=== PATIENT | female | born 1985 | race Two or more races ===

== ENCOUNTER 2022-07-02 11:08 | Emergency (ER) | payer OTHER ==
[2022-07-02 11:30] VITALS: BP 126/58
--- NOTE | 2022-07-02 11:47 | XRAY Report ---
PROCEDURE: Shoulder 3 View RT INDICATIONS: pain TECHNIQUE: 3 views of the shoulder were acquired. COMPARISON: None. FINDINGS: Bones: No fractures or dislocations. No suspicious bony lesions. Visualized ribs appear intact. Soft tissues: No suspicious soft tissue calcifications. IMPRESSION: No acute shoulder fracture or dislocation. No gross soft tissue abnormalities. Reviewed by: Hermilo Jeong MD on 07/02/2022 11:45 AM [facility] Approved by: Hermilo Jeong MD on 07/02/2022 11:45 AM [facility] Station ID: [id number]
--- NOTE | 2022-07-02 13:52 | ED Physician Documentation ---
PD HPI UPPER EXT INJURY - Stated complaint Stated Complaint: R SHOULD INJ - Chief complaint Chief Complaint: Trauma Ext - History obtained from History obtained from: Patient - History of Present Illness Location: Right, Shoulder Type of injury: Other (repetitive use and lifting.) Where injury occurred: Work Timing - onset: Yesterday (she states was doing lifting of heavy boxes, up and onto overhead shelving. No impact injury nor fall. Did not havepain at the time. Overnight had onset pain right posterior shoulder. Hurts with ROM.) Timing - duration: Hours Timing - details: Gradual onset, Still present Improved by: Rest Worsened by: Moving. No: Palpating Associated symptoms: No: Weakness, Numbness, Swelling Similar symptoms before: Has not had sx before Recently seen: Not recently seen Review of Systems Constitutional: denies: Fever, Chills Nose: denies: Rhinorrhea / runny nose, Congestion Throat: denies: Sore throat Cardiac: denies: Chest pain / pressure Respiratory: denies: Cough Skin: denies: Rash, Lesions Musculoskeletal: reports: Joint pain (right posterolateral shoulder.) Neurologic: denies: Focal weakness, Numbness PD PAST MEDICAL HISTORY - Past Medical History Cardiovascular: None Respiratory: None Musculoskeletal: None - Present Medications Home Medications: Ambulatory Orders Medication Instructions Recorded Confirmed HYDROcod/ACETAM 5/325 [[place] 5/325] 1 ea PO Q6H PRN #14 tablet 07/02/22 Ibuprofen [Motrin] 600 mg PO TID PRN #25 tab 07/02/22 Venlafaxine [Effexor] 75 mg PO DAILY 07/02/22 07/02/22 - Allergies Allergies/Adverse Reactions: Allergies Allergy/AdvReac Type Severity Reaction Status Date / Time Penicillins Allergy Anaphylaxis Verified 07/02/22 11:31 PD ED PE NORMAL - Vitals Vital signs reviewed: Yes - General General: Alert and oriented X 3, No acute distress, Well developed/nourished - Neck Neck: Supple, no meningeal sign, No bony TTP - Derm Derm: Normal color, Warm and dry, No rash - Extremities Extremities: Other (right shoulder tender over lateral aspect, deltoid/bursal area. no redness nor swelling. Some tender posterior shoulder and suprascapular area too. Pain but strong with rotator cuff moves. ) - Neuro Neuro: Alert and oriented X 3, No motor deficit, No sensory deficit, Normal speech Results - Vitals Vitals: Vital Signs - 24 hr 07/02/22 11:25 Temperature 37 C Heart Rate 68 Respiratory 16 Rate Blood Pressure 126/58 L O2 Saturation 100 Oxygen O2 Source Room air - Rads (name of study) right shoulder Radiology: Prelim report reviewed (normal shoulder xray.), See rad report PD Medical Decision Making - ED course Complexity details: reviewed results, considered differential (gradual onset after heavy lifting. tender at deltoid/bursal area but also with some rotator cuff moves. ), d/w patient Departure - Departure Disposition: 01 Home, Self Care Clinical Impression: Shoulder tendonitis Qualifiers: Laterality: right Qualified Code(s): M77.8 - Other enthesopathies, not elsewhere classified Condition: Stable Record reviewed to determine appropriate education?: Yes Instructions: ED Sprain Shoulder Follow-Up: Orthopedic Care [Provider Group] Prescriptions: Ibuprofen [Motrin] 600 mg PO TID PRN #25 tab PRN Reason: Pain HYDROcod/ACETAM 5/325 [[place] 5/325] 1 ea PO Q6H PRN #14 tablet PRN Reason: Pain Comments: Your x-ray is normal so no obvious bony abnormalities. The mechanism of injury along with the exam would be suggestive of a tendinitis/bursitis which is an a cute inflammation of the shoulder structures related to repetitive use or strain. I would anticipate improvement in this over the next 3 to 5 days with less use of the shoulder and some immobilization such as a sling and reduced work. I would also suggest anti-inflammatory such as ibuprofen 3 times daily with food. To that add Tylenol or hydrocodone/acetaminophen as needed for pain. Recheck if not improved well over the next 5 days. Follow-up with orthopedics if persistent pain or limitations in use. I sent your prescription to [facility] pharmacy in [place]. I am prescribing a short course of narcotic pain medication for you. These are potentially dangerous and addictive medications that should be used carefully. These medications may constipate you. Take an [id number] stool softener such as docusate twice daily with plenty of water while taking these medications. If you go 24 hours without a bowel movement, take [id number] MiraLAX, per package instructions. Do not drink or drive while taking these medications. If you received narcotic or sedating medications while in the emergency department do not drive for 24 hours. Store this medication in a safe, secure place and out of reach of children. It is a violation of federal law to give or sell this medication to another person or to use in a manner other than prescribed. The ED will not refill narcotic prescriptions, including prescriptions lost or stolen. You can dispose of unwanted medications at the [facility]'s office or at several pharmacies such as [email or web address]. Forms: Activity restrictions Discharge Date/Time: 07/02/22 15:07
[2022-07-02] MEDS ORDERED: HYDROcod/ACETAM 5/325 MG TABLET PO STA (14:16)
== END 2022-07-02 15:07 | disposition home or self-care (01) ==
LOC: ED 11:08
DX: M77.8 Other enthesopathies, not elsewhere classified (principal)
CPT/HCPCS: 1040M; 73030; 99282; 99283; A9270

== ENCOUNTER 2022-11-19 09:45 | Emergency (ER) | payer MEDICAID ==
--- NOTE | 2022-11-19 09:59 | ED Physician Documentation ---
PD HPI URI - Stated complaint Stated Complaint: LT EAR PX,CHILLS,DISCOMFORT - Chief complaint Chief Complaint: Heent - History obtained from History obtained from: Patient - History of Present Illness Timing - onset: How many days ago (2) Timing duration: Days (2) Timing details: Abrupt onset, Still present Associated symptoms: Chills, Ear pain (left ear with pain and decreased hearing. Had had some congestion and sore throat previous but was clearing.), Nasal congestion. No: Fever Similar symptoms before: Has not had sx before Recently seen: Not recently seen Review of Systems Constitutional: denies: Fever, Chills Ears: reports: Ear pain. denies: Loss of hearing (but is decreased), Drainage/discharge Nose: reports: Congestion Throat: reports: Sore throat Respiratory: denies: Cough Neurologic: denies: Altered mental status, Headache PD PAST MEDICAL HISTORY - Past Medical History Cardiovascular: None Respiratory: None Musculoskeletal: None - Present Medications Home Medications: Ambulatory Orders Medication Instructions Recorded Confirmed Venlafaxine [Effexor] 75 mg PO DAILY 07/02/22 11/19/22 ARIPiprazole [Abilify Mycite] 2 mg PO DAILY 11/19/22 11/19/22 Prazosin [Minipress] 1 mg PO QPM 11/19/22 11/19/22 cephALEXin [Keflex] 500 mg PO TID #20 cap 11/19/22 - Allergies Allergies/Adverse Reactions: Allergies Allergy/AdvReac Type Severity Reaction Status Date / Time Penicillins Allergy Anaphylaxis Verified 11/19/22 09:54 PD ED PE NORMAL - Vitals Vital signs reviewed: Yes - General General: Alert and oriented X 3, No acute distress, Well developed/nourished - HEENT HEENT: Pharynx benign, Dentition benign. No: Ears normal (right is normal. Left with redness and distorted landmarks of TM. No perforation. Neck with left an terior and postauricular adenopathy. ) - Neck Neck: Supple, no meningeal sign Results - Vitals Vitals: Vital Signs - 24 hr 11/19/22 11/19/22 09:49 10:47 Temperature 36.9 C Heart Rate 62 65 Respiratory 15 16 Rate Blood Pressure 116/69 114/70 O2 Saturation 99 99 Oxygen O2 Source Room air PD Medical Decision Making - ED course Complexity details: considered differential (seems recent either URI or allergies, but now quick progression of left ear symptoms, and exam c/w OM. ), d/w patient Departure - Departure Disposition: 01 Home, Self Care Clinical Impression: Otitis media Qualifiers: Otitis media type: suppurative Chronicity: acute Laterality: left Recurrence: non-recurrent Spontaneous tympanic membrane rupture: without spontaneous rupture Qualified Code(s): H66.002 - Acute suppurative otitis media without spontaneous rupture of ear drum, left ear Condition: Stable Record reviewed to determine appropriate education?: Yes Instructions: ED Otitis Media Acute Adult Prescriptions: cephALEXin [Keflex] 500 mg PO TID #20 cap Comments: Your symptoms do sound consistent with ear infection. The left eardrum is red with some fluid pressure behind it. Its not severely bad looking but is abnormal enough to be consistent with ear infection along with your symptoms. We will treat this with cephalexin for the next week. Use Tylenol or ibuprofen regularly for pain over the next day or 2. You could add cetirizine antihistamine to decrease some of the fluid congestion. I would anticipate improvement over the next few days and resolved by 3 to 5 days. I sent your prescription to your preferred pharmacy. Discharge Date/Time: 11/19/22 10:47
[2022-11-19] MEDS ORDERED: ACETAMINOPHEN 325 MG TABLET PO STA (10:21)
[2022-11-19] MEDS ORDERED: cephALEXin 250 MG CAPSULE PO STA (10:21)
[2022-11-19] MEDS ORDERED: CETIRIZINE 10 MG TABLET PO STA (10:22)
[2022-11-19 10:58] VITALS: BP 114/70
== END 2022-11-19 10:47 | disposition home or self-care (01) ==
LOC: ED 09:45
DX: H66.002 Acute suppurative otitis media without spontaneous rupture of ear drum, left ear (principal)
CPT/HCPCS: 99282; 99283; A9270

== ENCOUNTER 2023-01-03 09:09 | Outpatient (CLI) | payer MEDICAID ==
[2023-01-03 12:04] LABS: EOSINOPHILS % (AUTO) 0.7 %; HCT - HEMATOCRIT 38.3 % (37.0-47.0); HGB - HEMOGLOBIN 12.4 g/dL (12.0-16.0); LYMPHOCYTES # (AUTO) 1.2 10^3/uL (1.5-3.5); MEAN CORPUSCULAR HEMOGLOBIN 31.2 pg (27.0-31.0); MEAN CORPUSCULAR HGB CONC 32.4 g/dL (32.0-36.0); MEAN CORPUSCULAR VOLUME 96.2 fL (81.0-99.0); MEAN PLATELET VOLUME 11.3 fL (7.9-10.8); MONOCYTES # (AUTO) 0.3 10^3/uL (0.0-1.0); MONOCYTES % (AUTO) 7.4 %; NEUTROPHILS # (AUTO) 2.5 10^3/uL (1.5-6.6); NEUTROPHILS % (AUTO) 60.7 %; PLT - PLATELET COUNT 230 10^3/uL (130-450); RED BLOOD COUNT 3.98 10^6/uL (4.20-5.40); RED CELL DISTRIBUTION WIDTH 12.1 % (12.0-15.0)
[2023-01-03 12:28] LABS: ALBUMIN 4.2 g/dL (3.2-5.5); ALBUMIN/GLOBULIN RATIO 1.2 (1.0-2.2); ALKALINE PHOSPHATASE 41 IU/L (42-121); ALT ALANINE AMINOTRANSFERASE 16 IU/L (10-60); AST ASPARTATE AMINOTRANSFERASE 19 IU/L (10-42); BILIRUBIN,TOTAL 0.9 mg/dL (0.2-1.0); BUN - BLOOD UREA NITROGEN 13 mg/dL (6-20); CALCIUM 9.2 mg/dL (8.5-10.3); CARBON DIOXIDE - CO2 26 mmol/L (21-32); CHLORIDE 109 mmol/L (101-111); CHOL/HDL RATIO 2.1 (<4.4); CHOLESTEROL 168 mg/dL; CREATININE 0.6 mg/dL (0.4-1.0); GFR - MDRD 114 (>89); GLUCOSE 95 mg/dL (70-100); HDL CHOLESTEROL 80 mg/dL; LDL CHOLESTEROL,CALCULATED 78 mg/dL; POTASSIUM 4.1 mmol/L (3.5-5.0); SODIUM 139 mmol/L (135-145); TOTAL PROTEIN 7.7 g/dL (6.7-8.2); TRIGLYCERIDES 50 mg/dL; VLDL CHOLESTEROL 10 mg/dL
[2023-01-03 13:13] LABS: ESTIMATED AVERAGE GLUCOSE 103 mg/dL (70-100); HEMOGLOBIN A1c% 5.2 % (4.27-6.07)
[2023-01-03 14:03] LABS: THYROID STIMULATING HORMONE 1.53 uIU/mL (0.34-5.60)
[2023-01-06 17:09] LABS: HCV AB Reactive (Non Reactive); HCV IU/ML HCV Not Detected IU/mL (.)
== END 2023-01-03 09:10 | disposition home or self-care (01) ==
LOC: LAB.N 09:09
PROVIDERS: ATTEND Nurse Practitioner Family
DX: Z00.00 Encounter for general adult medical examination without abnormal findings (principal); Z87.19 Personal history of other diseases of the digestive system
CPT/HCPCS: 36415; 80050; 80061; 83036; 83721; 86803; 87522

== ENCOUNTER 2023-10-02 02:44 | Outpatient (CLI) | payer MEDICAID | END 2023-10-02 23:59 | disposition critical access hospital (66) | LOC: EMS 02:44 | DX: T14.91XA Suicide attempt, initial encounter (principal); S51.812A Laceration without foreign body of left forearm, initial encounter; S51.811A Laceration without foreign body of right forearm, initial encounter; X78.1XXA Intentional self-harm by knife, initial encounter; Y92.009 Unspecified place in unspecified non-institutional (private) residence as the place of occurrence of the external cause | CPT/HCPCS: A0425; A0429; A0999 ==

== ENCOUNTER 2023-10-02 03:05 | Emergency (ER) | payer MEDICAID ==
--- NOTE | 2023-10-02 03:11 | ED Physician Documentation ---
PD HPI MHE - Stated complaint Stated Complaint: SONDRA/SI - History obtained from History obtained from: Patient, EMS - Additional information Additional information: BIBA. HPI from patient, EMS, and information gathered from the SONDRA form that was filled out by police EPIC APPLICATION COORDINATOR. Patient says that she recently stopped taking her anti-depressant medication (she cannot recall the name of the medication at this time) a few days ago. It is unclear why she decided to stop this medication abruptly without being advised to do so. 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 Patient says that tonight, she was in a verbal argument with her spouse which led to patient having suicidal thoughts followed by self-injurious behavior; specifically, the patient used a kitchen knife to inflict multiple superficial abrasions lacerations to both forearms. Spouse called 911. Patient says she was inpatient for mental health reasons in 2017. Review of Systems Cardiac: reports: Reviewed and negative Respiratory: reports: Reviewed and negative GI: reports: Reviewed and negative Neurologic: denies: Focal weakness, Numbness Psychiatric: reports: Suicidal, Anxiety. denies: Homicidal, Hallucinations, Delusions PD PAST MEDICAL HISTORY - Past Medical History Cardiovascular: None Respiratory: None Musculoskeletal: None - Present Medications Home Medications: Ambulatory Orders Medication Instructions Recorded Confirmed Prazosin [Minipress] 2 mg PO QPM 11/19/22 10/02/23 Atomoxetine HCl [Strattera] 80 mg PO DAILY 10/02/23 10/02/23 Brexpiprazole [Rexulti] 1 mg PO DAILY 10/02/23 10/02/23 Famotidine [Zantac-360 20 mg PO DAILY 10/02/23 10/02/23 (Famotidine)] Venlafaxine ER [Effexor ER] 75 mg PO DAILY 10/02/23 10/02/23 Venlafaxine ER [Effexor ER] 75 mg PO DAILY 10/02/23 10/02/23 clonazePAM [Klonopin] 0.5 mg PO DAILY PRN 10/02/23 10/02/23 lamoTRIgine [LaMICtal] 50 mg PO DAILY 10/02/23 10/02/23 - Allergies Allergies/Adverse Reactions: Allergies Allergy/AdvReac Type Severity Reaction Status Date / Time Penicillins Allergy Anaphylaxis Verified 10/02/23 03:35 PD ED PE NORMAL - Vitals Vital signs reviewed: Yes - General General: Alert and oriented X 3, Well developed/nourished, Other (appears anxious, crying at times. however, she is cooperative, responds appropriately to HPI/ROS questions) - HEENT HEENT: PERRL, EOMI - Neck Neck: Supple, no meningeal sign - Cardiac Cardiac: RRR, No murmur - Respiratory Respiratory: No respiratory distress, Clear bilaterally - Abdomen Abdomen: Soft, Non tender - Neuro Neuro: Alert and oriented X 3 Eye Opening: Spontaneous Motor: Obeys Commands Verbal: Oriented GCS Score: 15 PD ED PE EXPANDED - Extremities Extremities: Other (Multiple superficial linear abrasions and superficial lacerations to bilateral distal forearms (extensor surfaces only)) - Psych Psych: Tearful, Anxious Results - Vitals Vitals: Vital Signs - 24 hr 10/02/23 10/02/23 10/02/23 03:05 04:52 09:47 Temperature 36.5 C 36.8 C 36.5 C Heart Rate 90 83 70 Respiratory 20 16 18 Rate Blood Pressure 112/69 103/70 127/77 O2 Saturation 100 100 100 Oxygen O2 Source Room air - Labs Labs: Microbiology 10/02/23 04:06 Urine Culture - Preliminary Urine,Random CULTURE IN PROGRESS. RESULTS TO FOLLOW. Laboratory Tests 10/02/23 10/02/23 10/02/23 03:20 03:20 04:06 WBC 7.6 RBC 3.98 L Hgb 12.6 Hct 37.8 MCV 95.0 MCH 31.7 H MCHC 33.3 RDW 13.1 Plt Count 307 MPV 9.9 Neut # (Auto) 5.8 Lymph # (Auto) 0.9 L [place] # (Auto) 0.8 Eos # (Auto) 0.0 Baso # (Auto) 0.0 Absolute Nucleated RBC 0.00 Nucleated RBC % 0.0 Sodium 137 Potassium 3.9 Chloride 105 Carbon Dioxide 23 Anion Gap 9.0 BUN 20 Creatinine 0.8 Estimated GFR (MDRD) 81 L Glucose 86 Calcium 10.4 H Magnesium 1.8 Total Bilirubin 0.9 AST 18 ALT 25 Alkaline Phosphatase 79 Total Creatine Kinase 227 H Total Protein 8.3 Albumin 5.0 Globulin 3.3 Albumin/Globulin Ratio 1.5 Lipase 24 TSH 2.32 Urine Color YELLOW Urine Clarity CLEAR Urine pH 6.0 Ur Specific [place] 1.025 Urine Protein TRACE Urine Glucose (UA) NEGATIVE Urine Ketones 40 H Urine Occult Blood NEGATIVE Urine Nitrite NEGATIVE Urine Bilirubin NEGATIVE Urine Urobilinogen 1 (NORMAL) Ur Leukocyte Esterase TRACE H Urine RBC 0-5 Urine WBC 0-3 Ur Squamous Epith Cells FEW Squamous Urine Bacteria None Seen Ur Microscopic Review INDICATED Urine Culture Comments INDICATED Salicylates < 1.5 Urine Opiates Screen NEGATIVE Ur Buprenorphine Scrn NEGATIVE Ur Oxycodone Screen NEGATIVE Urine Methadone Screen NEGATIVE Acetaminophen < 0.1 Ur Barbiturates Screen NEGATIVE Ur Tricyclics Screen NEGATIVE Ur Phencyclidine Scrn NEGATIVE Ur Amphetamine Screen POSITIVE H U Methamphetamines Scrn POSITIVE H U Benzodiazepines Scrn NEGATIVE Urine Cocaine Screen NEGATIVE U Cannabinoids Screen POSITIVE H Ur Drug Screen Comment CUTOFF CONC BELOW: Ethyl Alcohol < 10.0 PD Medical Decision Making - ED course Complexity details: reviewed results, re-evaluated patient, considered differential, d/w patient ED course: Patient presents for suicidal thoughts with self-injurious behavior consisting of multiple self-inflicted superficial abrasions and lacerations to both forearms. Early in her stay, she request Tylenol for a headache as well as a dose of hydroxyzine which she takes on a daily basis at home. She is given both these medications and on reevaluation, she reports resolution of the headache and feeling much improved (regarding her anxiety) after the hydroxyzine. I explained to her that I would be obtaining a psychiatric consultation given the suicidal thoughts and self-injury, and patient is agreeable to this. I specifically ask if she would prefer inpatient treatment versus being discharged, she indicates that she strongly prefers discharge home but, again, is understanding of, and willing to, undergo psychiatric evaluation in order to help determine appropriate disposition. I have medically cleared this patient for telepsychiatric evaluation (based on test results and my H+P). At the end of my shift, telepsychiatric consult is pending and thus care of patient is turned over to oncoming ED physician (Dr. Salas)
[2023-10-02 03:29] LABS: BASOPHILS % (AUTO) 0.4 %; EOSINOPHILS % (AUTO) 0.4 %; HCT - HEMATOCRIT 37.8 % (37.0-47.0); HGB - HEMOGLOBIN 12.6 g/dL (12.0-16.0); LYMPHOCYTES # (AUTO) 0.9 10^3/uL (1.5-3.5); LYMPHOCYTES % (AUTO) 11.9 %; MEAN CORPUSCULAR HEMOGLOBIN 31.7 pg (27.0-31.0); MEAN CORPUSCULAR HGB CONC 33.3 g/dL (32.0-36.0); MEAN PLATELET VOLUME 9.9 fL (7.9-10.8); MONOCYTES # (AUTO) 0.8 10^3/uL (0.0-1.0); MONOCYTES % (AUTO) 10.6 %; NEUTROPHILS # (AUTO) 5.8 10^3/uL (1.5-6.6); NEUTROPHILS % (AUTO) 76.4 %; PLT - PLATELET COUNT 307 10^3/uL (130-450); RED BLOOD COUNT 3.98 10^6/uL (4.20-5.40); RED CELL DISTRIBUTION WIDTH 13.1 % (12.0-15.0); WHITE BLOOD COUNT 7.6 x10^3/uL (4.8-10.8)
[2023-10-02 04:05] LABS: MAGNESIUM 1.8 mg/dL (1.7-2.3)
[2023-10-02 04:11] LABS: BILIRUBIN,URINE NEGATIVE (NEGATIVE); GLUCOSE, URINE (UA) NEGATIVE (NEGATIVE); KETONES,URINE (UA) 40 mg/dL (NEGATIVE); LEUKOCYTE ESTERASE, URINE TRACE (NEGATIVE); NITRITE,URINE NEGATIVE (NEGATIVE); OCCULT BLOOD,URINE NEGATIVE (NEGATIVE); PROTEIN,URINE TRACE mg/dL (NEGATIVE); UROBILINOGEN,URINE 1 (NORMAL) E.U./dL (NORMAL)
[2023-10-02 04:11] LABS: ALBUMIN/GLOBULIN RATIO 1.5 (1.0-2.2); ALKALINE PHOSPHATASE 79 IU/L (42-121); ALT ALANINE AMINOTRANSFERASE 25 IU/L (10-60); AST ASPARTATE AMINOTRANSFERASE 18 IU/L (10-42); BILIRUBIN,TOTAL 0.9 mg/dL (0.2-1.0); BUN - BLOOD UREA NITROGEN 20 mg/dL (6-20); CALCIUM 10.4 mg/dL (8.5-10.3); CARBON DIOXIDE - CO2 23 mmol/L (21-32); CHLORIDE 105 mmol/L (101-111); CK- CREATINE KINASE 227 IU/L (30-223); CREATININE 0.8 mg/dL (0.6-1.3); ETOH - ETHANOL < 10.0 mg/dL; GFR - MDRD 81 (>89); GLUCOSE 86 mg/dL (74-104); LIPASE 24 U/L (11-82); POTASSIUM 3.9 mmol/L (3.5-4.5); SODIUM 137 mmol/L (135-145); TOTAL PROTEIN 8.3 g/dL (6.4-8.9)
[2023-10-02 04:19] LABS: ACETAMINOPHEN < 0.1 ug/mL; SALICYLATE < 1.5 mg/dL
[2023-10-02 04:23] LABS: THYROID STIMULATING HORMONE 2.32 uIU/mL (0.34-5.60)
[2023-10-02 04:29] LABS: CLARITY,URINE CLEAR (CLEAR)
[2023-10-02 04:30] LABS: BACTERIA,URINE None Seen /HPF (None Seen); RBC,URINE 0-5 /HPF (0-5); SQUAMOUS EPITHELIAL CELL,UR FEW Squamous (<= Few); THC CANNABINOID SCREEN, URINE POSITIVE (NEGATIVE); WBC,URINE 0-3 /HPF (0-5)
[2023-10-02 04:31] LABS: AMPHETAMINE SCREEN,URINE POSITIVE (NEGATIVE); BARBITURATE SCREEN,UR NEGATIVE (NEGATIVE); BENZODIAZEPINES SCREEN, URINE NEGATIVE (NEGATIVE); BUPRENORPHINE SCREEN, URINE NEGATIVE (NEGATIVE); COCAINE SCREEN URINE NEGATIVE (NEGATIVE); METHADONE SCREEN, URINE NEGATIVE (NEGATIVE); METHAMPHETAMINES SCREEN, URINE POSITIVE (NEGATIVE); OPIATE SCREEN, URINE NEGATIVE (NEGATIVE); OXYCODONE SCREEN, URINE NEGATIVE (NEGATIVE); TRICYCLIC ANTIDEPRESSANT,URINE NEGATIVE (NEGATIVE)
[2023-10-02] MEDS: ACETAMINOPHEN 325 MG TABLET PO STA (05:10)
[2023-10-02] MEDS: hydrOXYzine PAMOATE 25 MG CAPSULE PO STA (05:13)
--- NOTE | 2023-10-02 08:54 | PHARMACY PROGRESS NOTE ---
- Best Possible Medication History Admit Date and Time: Processed by: Pharmacy Medications reviewed in ED?: Yes Medication History completed: Yes Patient Interview: Completed Secondary Source(s): Pharmacy records, Insurance records As the person ultimately responsible for medication therapy, providers are able to order a medication from an existing home medication list in [facility] via the "Reconcile Routine" prior to Confirmation of that medication by desktop support consultant. Such practice is discouraged except when the physician, in their clinical judgment, deems that a medical need exists for a medication without regard to previous use.
--- NOTE | 2023-10-02 09:14 | TELEPSYCH PHYS NOTE ---
[facility] Telepsych Consult Consult Date: 10/02/23 Name of Referring Provider:: - Suicide Risk Sreening (ASQ Tool) In the past few weeks, have you wished you were ?: Yes In the past few weeks, have you felt that you or your family would be better off if you were ?: Yes In the past week, have you been having thoughts about killing yourself?: Yes Have you ever tried to kill yourself?: Yes - Assessment Language: Greenlandic Senior Interactive Developer Required: No Cultural, Moravian or Spiritual Preferences: Islam Notes: Pt was brought in by EMS after called 911 since she cut her arms. History of Present Illness: Pt is a 38yoF w/ hx of stimulant use disorder, PTSD, and depression who was brought in by police for SI. Pt had gotten into a verbal argument with her and cut her arms. called 911. Pt reports she self-harmed last night by cutting her arms. Denies SI, denies HI, denies self-harm. Pt reports she wants to live for her kids. Pt reports she wants her family, her 's respect, and she wants him to have froy in her. She states she wants to get sober. She feels like she doesn't have emotional support at home. She says she doesn't know how to handle her emotions. She reports she has used substances for over 15 years. 3 years ago, she quit everything. Pt reports she would like inpatient substance use treatment. Suicide Ideation - Homicide Ideation - Self Harm: Denies SI, denies HI, denies self-harm thoughts. Pt states she wants to live. Psychiatric History - Treatment History: Inpatient psychiatric hospitalization: last hospitalization was in 2019 Past diagnosis: stimulant use disorder, depression, anxiety Community Resources Accessed: Has outpatient psychiatrist and therapist, sees therapist on weekly basis Family Psych History/ History of suicide: daughter- depression Nutritional Status: No nutritional concerns, Weight loss or gain of 10 pounds or more in the last three months - Medication & Allergies Home Medications: Ambulatory Orders Medication Instructions Recorded Confirmed Prazosin [Minipress] 2 mg PO QPM 11/19/22 10/02/23 Atomoxetine HCl [Strattera] 80 mg PO DAILY 10/02/23 10/02/23 Brexpiprazole [Rexulti] 1 mg PO DAILY 10/02/23 10/02/23 Famotidine [Zantac-360 20 mg PO DAILY 10/02/23 10/02/23 (Famotidine)] Venlafaxine ER [Effexor ER] 75 mg PO DAILY 10/02/23 10/02/23 Venlafaxine ER [Effexor ER] 75 mg PO DAILY 10/02/23 10/02/23 clonazePAM [Klonopin] 0.5 mg PO DAILY PRN 10/02/23 10/02/23 lamoTRIgine [LaMICtal] 50 mg PO DAILY 10/02/23 10/02/23 Allergies/Adverse Reactions: Allergies Allergy/AdvReac Type Severity Reaction Status Date / Time Penicillins Allergy Anaphylaxis Verified 10/02/23 03:35 - Drug & Alcohol History Does patient have Drug/ETOH history or addictive behavior?: Yes Use: Uses substance without health or social issues: Amphetamine Use Issues: Intoxication Abuse: Recurrent use of substance despite neg consequences: Amphetamine Abuse Issues: Intoxication, Anxiety Disorder, Mood Disorder Dependence: Experiences withdrawal or developed tolerances: Amphetamine Dependence Issues: Intoxication - Trauma Does the patient have a history of trauma, abuse, neglect or explotation?: Yes - Personal Information Does the patient have a history or present tendencies for violence?: Past Services History: denies Does patient have any Legal Charges or Investigations?: Yes Legal Charges or Investigations (Notes): Warrant in [place] from 2019 Environment & Living Situation - Social, Peer-Group (Note): At home Environment & Living Situation - Social, Peer-Group (Notes): lives with cristian and kids, her children are 17 and 2. She states she does not use drugs in the house or in front of the kids. She states kids are safe with cristian currently. Marital Status - Family Circumstances: Fijude and 2 children Stressors - Financial Concerns: She is really upset that she started using substances again and got into an argument with cristian. Education: graduated highschool Occupation: doesn't work currently Collateral - Interdisciplinary Input: Reviewed ED notes, She gave consent to tell him and would like me to call and update him of the plan. Collateral with (Rajan [phone]: Informed him that she will be going to inpatient substance use treatment. He thinks that is a good plan. - Medical History Psychiatric: reports: Depression, Anxiety, Bipolar disorder, Schizophrenia, ADD/ADHD, Post traumatic stress disorder, Other Cardiovascular: reports: None Respiratory: reports: None Gastrointestinal: reports: Pancreatitis Musculoskeletal: reports: None - Surgical History /HAT RENOVATOR: reports: Tubal ligation Childhood History: hx of trauma - Mental Status Exam Appearance and Attire: casually groomed, sitting up Attitude and Behavior: cooperative, no PMA, no PMR Speech: normal rate, amount Affect and Mood: "upset", labile affect Association and Thought Process: intact association, linear and organized thought process Thought Content: denies SI, denies HI Perception: denies AVH Sensorium, memory and orientation: alert and oriented to person, place, memory grossly intact Intellectual - Cognitive functioning: intact Insight and Judgement: fair insight, fair judgement Emotional and Behavioral Functioning: fair when not using substances Ability to Self-Care: fair when not using substances - Personal Goals Short-term Goals: get sober Long-term Goals: have a family - Risk/Protective Factors Risk Factors: Trigger events leading to humiliation, shame and/or despair, Sexual or physical abuse, Substance intoxication or withdrawal Protective Factors / Internal: Fear of or the actual act of killing self, Identifies reasons for living Protective Factors / External: Cultural, spiritual and/or moral attitudes against suicide, Responsibility to children, Supportive social network of family or friends, Positive therapeutic relationships - Plan Impression/Risk Assessment: Pt is a 38yoF w/ hx of stimulant use disorder, PTSD, and depression who was br ought in by police for SI. Utox was methamphetamine positive. Pt reports she relapsed a couple months ago. She states she would really like to become sober. Denies SI and HI. She is future-oriented, has a good support system, and wants to live for her children. Given this, she is not an acute safety concern and does not require inpatient psychiatric hospitalization. Her risk increases with substance use. She would like to go to inpatient substance use treatment. Given recent self-harm when intoxicated, I would highly recommend going to inpatient substance use treatment directly from the hospital. Treatment - Therapy Recommendations: Inpatient substance use treatment Pharmacological Recommendations: Can give ativan 1mg once for methamphetamine withdrawal - Time Spent & Provider Location Telepsych consultation conducted via videoconferencing: Yes List names and roles of persons who participated in consult: Yani Soto MD Telepsych Provider Location: [place] Time Spent (Minutes): 50
[2023-10-02] MEDS: ALPRAZolam 0.25 MG TABLET PO STA (12:05)
--- NOTE | 2023-10-02 14:51 | ED Physician Documentation ---
ED Addendum - Addendum Addendum: 10/02/23 14:47 The patient was signed out to me at change of shift, pending evaluation by social science professor after telepsychiatrist determined the patient did not need inpatient psychiatric treatment. The telepsychiatrist however had recommended the patient be sent for inpatient substance abuse treatment, as the patient had expressed interest in this and was noted to sometimes have suicidal ideation when under the influence of drugs. straightedge worker did see the patient and there was some concern that the significant other stated the patient had been delusional and worried that the illuminati was trying to harm her children. However the patient had not had any statements of harming her children and She now wanted to leave the emergency department and not go to inpatient treatment. After some consideration of the case, patient is felt stable for discharge home. She is not at this point in time a danger to herself or others and while her symptoms are most likely exacerbated if not completely caused by methamphetamines, she is not gravely disabled. Patient has been given resources by social work and stable for discharge. We have discussed the usual indications for return. Final impression: See original note Disposition: Discharged home in stable condition.
[2023-10-02 15:00] VITALS: BP 106/55; O2SAT 100
--- NOTE | 2023-10-05 03:47 | ED Physician Documentation ---
ED Addendum - Addendum Addendum: 10/05/23 03:45 Chart accessed for culture review. Patient's urine is positive for E. coli, greater than 100,000 CFU/mL. I am recommending nitrofurantoin 100 mg p.o. twice daily for 5 days.
--- NOTE | 2023-10-05 13:14 | ED Physician Documentation ---
ED Addendum - Addendum Addendum: 10/05/23 13:14 Addendum to my original addendum from October 01. Final impression: 1. Suicidal ideation 2. Methamphetamine abuse.
== END 2023-10-02 15:04 | disposition home or self-care (01) ==
LOC: EDBD → EDUNIT# → ED 03:05
DX: F32.A Depression, unspecified (principal); R45.851 Suicidal ideations; F41.9 Anxiety disorder, unspecified; F15.10 Other stimulant abuse, uncomplicated; T50.996A Underdosing of other drugs, medicaments and biological substances, initial encounter; Z91.128 Patient's intentional underdosing of medication regimen for other reason; Z79.899 Other long term (current) drug therapy
CPT/HCPCS: 36415; 80053; 80143; 80179; 80306; 81001; 82077; 82550; 83690; 83735; 84443; 85025; 87086; 87181; 87635; 90834; 99283; 99284; A9270; Q3014; 81003

== ENCOUNTER 2023-10-17 15:46 | Outpatient (CLI) | payer MEDICAID ==
[2023-10-17 16:05] LABS: BASOPHILS # (AUTO) 0.1 10^3/uL (0.0-0.1); BASOPHILS % (AUTO) 0.8 %; EOSINOPHILS # (AUTO) 0.1 10^3/uL (0.0-0.7); EOSINOPHILS % (AUTO) 2.1 %; HCT - HEMATOCRIT 33.2 % (37.0-47.0); HGB - HEMOGLOBIN 10.4 g/dL (12.0-16.0); LYMPHOCYTES # (AUTO) 1.5 10^3/uL (1.5-3.5); LYMPHOCYTES % (AUTO) 23.7 %; MEAN CORPUSCULAR HEMOGLOBIN 31.3 pg (27.0-31.0); MEAN CORPUSCULAR HGB CONC 31.3 g/dL (32.0-36.0); MEAN PLATELET VOLUME 10.2 fL (7.9-10.8); MONOCYTES # (AUTO) 0.5 10^3/uL (0.0-1.0); MONOCYTES % (AUTO) 7.3 %; NEUTROPHILS # (AUTO) 4.1 10^3/uL (1.5-6.6); NEUTROPHILS % (AUTO) 65.6 %; PLT - PLATELET COUNT 288 10^3/uL (130-450); RED BLOOD COUNT 3.32 10^6/uL (4.20-5.40); RED CELL DISTRIBUTION WIDTH 12.4 % (12.0-15.0); WHITE BLOOD COUNT 6.2 x10^3/uL (4.8-10.8)
[2023-10-17 16:16] LABS: ALBUMIN/GLOBULIN RATIO 1.5 (1.0-2.2); ALKALINE PHOSPHATASE 60 IU/L (42-121); ALT ALANINE AMINOTRANSFERASE 18 IU/L (10-60); AST ASPARTATE AMINOTRANSFERASE 15 IU/L (10-42); BILIRUBIN,TOTAL 0.2 mg/dL (0.2-1.0); BUN - BLOOD UREA NITROGEN 13 mg/dL (6-20); CALCIUM 9.7 mg/dL (8.5-10.3); CARBON DIOXIDE - CO2 29 mmol/L (21-32); CHLORIDE 106 mmol/L (101-111); CHOL/HDL RATIO 2.5 (<4.4); CHOLESTEROL 158 mg/dL; CREATININE 0.9 mg/dL (0.6-1.3); GFR - MDRD 71 (>89); GLUCOSE 86 mg/dL (74-104); HDL CHOLESTEROL 63 mg/dL; LDL CHOLESTEROL,CALCULATED 73 mg/dL; LDL/HDL RATIO 1.2 (<4.4); POTASSIUM 3.9 mmol/L (3.5-4.5); SODIUM 138 mmol/L (135-145); TOTAL PROTEIN 6.7 g/dL (6.4-8.9); TRIGLYCERIDES 108 mg/dL (48-352); VLDL CHOLESTEROL 22 mg/dL
[2023-10-17 16:33] LABS: THYROID STIMULATING HORMONE 4.71 uIU/mL (0.34-5.60)
[2023-10-17 16:36] LABS: PROLACTIN 25.36 ng/mL
[2023-10-17 20:48] LABS: ESTIMATED AVERAGE GLUCOSE 94 mg/dL (70-100); HEMOGLOBIN A1c% 4.9 % (4.27-6.07)
== END 2023-10-17 15:47 | disposition home or self-care (01) ==
LOC: LAB 15:46
PROVIDERS: ATTEND Nurse Practitioner
DX: N93.9 Abnormal uterine and vaginal bleeding, unspecified (principal); N95.1 Menopausal and female climacteric states; R23.2 Flushing; Z79.899 Other long term (current) drug therapy
CPT/HCPCS: 36415; 80053; 80061; 83001; 83002; 83036; 83721; 84146; 84443; 85025